=== PATIENT | male | born 1995 | race Caucasian/White ===

== ENCOUNTER 2020-07-15 07:08 | Emergency (ER) | payer BC, SELFPAY ==
[~2020-07-15] VITALS: Ht 180.3 cm; Wt 83.5 kg
[2020-07-15 07:10] VITALS: BP 133/78; Ht 180.3 cm; Wt 83.5 kg
== END 2020-07-15 08:22 | disposition home or self-care (01) ==
LOC: ED 07:08
DX: U07.1 COVID-19 (principal); F17.210 Nicotine dependence, cigarettes, uncomplicated
CPT/HCPCS: 99406; U0003